=== PATIENT | female | born 1950 | race Caucasian/White ===

== ENCOUNTER → 2016-10-07 | Outpatient (CLI) | payer MEDICARE, OTHER ==
[~2016-10-07] MED LIST: ADVIL200 MG PO; ASPIRIN LO-DOSE81 MG PO; LOTENSIN20 MG PO; MOBIC7.5 MG PO; NORVASC5 MG PO; PROTONIX40 MG PO
--- NOTE | 2016-10-07 13:31 | NUR ---
Met with patient prior to breast biopsy. Introduced self and role of nurse navigator. Told patient I would call her tomorrow to see how she is doing. No questions at this time
== END | disposition disaster alternative care site (69) ==
LOC: GOPD 10-06
PROC: 0HBU3ZX Excision of Left Breast, Percutaneous Approach, Diagnostic (ICD-10-PCS; principal; 2016-10-07)
DX: C50.112 Malignant neoplasm of central portion of left female breast (principal); Z17.0 Estrogen receptor positive status [ER+]
CPT/HCPCS: J7050

== ENCOUNTER → 2016-11-04 | Outpatient (CLI) | payer MEDICARE, OTHER | END | disposition disaster alternative care site (69) | LOC: GRAD 09:37 | DX: C50.512 Malignant neoplasm of lower-outer quadrant of left female breast (principal); Z80.3 Family history of malignant neoplasm of breast; Z85.43 Personal history of malignant neoplasm of ovary | CPT/HCPCS: C8908 ==

== ENCOUNTER → 2017-04-01 | Outpatient (CLI) | payer MEDICARE, OTHER | LOC: LHSC 11:19 | DX: K21.9 Gastro-esophageal reflux disease without esophagitis (principal) ==